=== PATIENT | female | born 1945 | race Caucasian/White ===

== ENCOUNTER 2024-04-26 22:10 | Inpatient (IN) | payer MEDICARE, OTHER ==
[~2024-04-26] VITALS: Ht 149.9 cm; Wt 60.1 kg
[~2024-04-26 22:10] MED LIST: ACET-929; BIOT10004 PO; CARV6.2517; CHOL20007 OR; CYAN25005 PO; DIPH25CA66 PO; FLUT250M9; LEVO75TA6; NAPR220C PO; POLYSOL2 EACHEYE; PROBTAB12 OR; ROSU10TA16 PO; SITA100T7
[2024-04-26 22:42] LABS: Basophils # (auto) 0 10 ^3/uL (0-0.2); Basophils % (auto) 0.8 % (0.0-2.0); Eosinophils # (auto) 0.1 10 ^3/uL (0-0.8); Eosinophils % (auto) 2.2 % (0.0-7.0); Hematocrit 38.7 % (36.0-46.0); Hemoglobin 13.3 g/dL (12.2-16.2); Lymphocytes # (auto) 2.5 10 ^3/uL (0.4-5.4); Lymphocytes % (auto) 40.7 % (10.0-50.0); Mean Corpuscular Hemoglobin 30.4 pg (28.0-32.0); Mean Corpuscular Hgb Conc. 34.3 g/dL (32.0-36.0); Mean Corpuscular Volume 88.7 fL (80.0-100.0); Monocytes # (auto) 0.6 10 ^3/uL (0-1.3); Monocytes % (auto) 9.7 % (0.0-12.0); Neutrophils # (auto) 2.8 10 ^3/uL (1.6-8.6); Neutrophils % (auto) 46.6 % (37.0-80.0); Nucleated Red Blood Cells % 0.1 %; Platelet Count (auto) 188 10^3/uL (140-450); Red Blood Cells 4.37 10^6/uL (4.0-5.20); Red Cell Distribution Width 13.4 % (11.8-14.3); White Blood Cell 6.1 10^3/uL (4.4-10.8)
[2024-04-26 23:01] LABS: Alanine Aminotransferase 21 U/L (7-40); Albumin 4.2 g/dL (3.2-4.8); Alkaline Phosphatase 83 U/L (46-116); Anion Gap 9 (5-15); Aspartate Aminotransferase 14 U/L (13-40); BUN/Creatinine Ratio 12.1 (10.0-20.0); Bilirubin, Total 0.5 mg/dL (0.2-1.0); Blood Urea Nitrogen 12 mg/dL (9-23); Calcium 9.7 mg/dL (8.7-10.4); Carbon Dioxide 25 mmol/L (20-31); Chloride 105 mmol/L (98-107); Glucose 111 mg/dL (74-106); Potassium 3.8 mmol/L (3.5-5.1); Sodium 139 mmol/L (136-145); Total Protein 6.5 g/dL (5.7-8.2)
[2024-04-27] MEDS: MORPHINE SULFATE 4 MG/ML SYR/VIAL IM ONE (02:06)
[2024-04-27] MEDS: cefTRIAXone 1GM/50ML D5W 50 ML IV ONE (04:34)
[2024-04-27] MEDS ORDERED: NITROGLYCERIN 0.4 MG SL TAB SL PRN (05:45)
[2024-04-27 07:38] VITALS: PULSE 85; RESP 16; O2SAT 97
[2024-04-27 08:18] VITALS: BP 130/72; PULSE 79; RESP 16; TEMP 98.5; O2SAT 94
[2024-04-27 08:47] LABS: INR 1.03 (0.9-1.15); Prothrombin Time 10.9 sec (9.3-11.8)
[2024-04-27 09:46] VITALS: O2SAT 96
[2024-04-27 10:17] LABS: Chloride 105 mmol/L (98-107); Sodium 141 mmol/L (136-145)
[2024-04-27 10:18] LABS: Anion Gap 9 (5-15); Calcium 10.1 mg/dL (8.7-10.4); Carbon Dioxide 27 mmol/L (20-31)
[2024-04-27 10:20] LABS: Basophils # (auto) 0 10 ^3/uL (0-0.2); Basophils % (auto) 0.6 % (0.0-2.0); Eosinophils # (auto) 0.2 10 ^3/uL (0-0.8); Eosinophils % (auto) 2.7 % (0.0-7.0); Hematocrit 42.6 % (36.0-46.0); Hemoglobin 14.5 g/dL (12.2-16.2); Lymphocytes # (auto) 2.8 10 ^3/uL (0.4-5.4); Lymphocytes % (auto) 42.6 % (10.0-50.0); Mean Corpuscular Hemoglobin 30.4 pg (28.0-32.0); Mean Corpuscular Hgb Conc. 34.1 g/dL (32.0-36.0); Mean Corpuscular Volume 89.3 fL (80.0-100.0); Monocytes # (auto) 0.6 10 ^3/uL (0-1.3); Monocytes % (auto) 9.1 % (0.0-12.0); Neutrophils # (auto) 2.9 10 ^3/uL (1.6-8.6); Nucleated Red Blood Cells % 0.2 %; Platelet Count (auto) 203 10^3/uL (140-450); Red Blood Cells 4.77 10^6/uL (4.0-5.20); Red Cell Distribution Width 13.4 % (11.8-14.3); White Blood Cell 6.5 10^3/uL (4.4-10.8)
[2024-04-27 10:23] LABS: Blood Urea Nitrogen 12 mg/dL (9-23); Glucose 104 mg/dL (74-106)
[2024-04-27 10:25] LABS: Creatine Kinase IFCC 57 U/L (34-145)
[2024-04-27] MEDS: MORPHINE SULFATE INJ 2 MG/ml SYRG IV PRN (11:55)
[2024-04-27] MEDS ORDERED: MEROPENEM 2GM/ 250ML 250 ML IV SCH ×2 (14:00)
[2024-04-27 15:34] LABS: Urine Bacteria None Seen /hpf (None Seen)
[2024-04-27 16:09] LABS: Urine Blood Negative /uL (Negative); Urine Clarity Turbid (Clear); Urine Color Light-Yellow (Yellow); Urine Mucus FEW (None Seen); Urine Protein, UAD Negative (Negative); Urine Specific Gravity 1.016 (1.001-1.035); Urine Urobilinogen Normal (Negative); Urine WBC 143 /hpf (0 - 5)
[2024-04-27 16:26] LABS: Amphetamine Screen, Urine Neg (NEGATIVE); Barbiturate Scree,Urine Neg (NEGATIVE); Benzodiazephine Screen, Urine Neg (NEGATIVE); Cannabinoid Screen, Urine Neg (NEGATIVE); Cocaine Screen, Urine Neg (NEGATIVE); Opiate Scree,Urine Pos (NEGATIVE); Phencyclidine Screen, Urine Neg (NEGATIVE)
[2024-04-27 19:00] VITALS: BP 147/72; PULSE 86; RESP 17; TEMP 97.9; O2SAT 95; O2SAT 98
[2024-04-27 19:15] VITALS: O2SAT 94
[2024-04-27 20:00] VITALS: BP 147/72; PULSE 86; PULSE 90; RESP 17; TEMP 97.9; O2SAT 95
[2024-04-27] MEDS ORDERED: LISI2.5T47 PO (22:57)
[2024-04-27] MEDS ORDERED: ATOR20TA50 PO (22:57)
[2024-04-27] MEDS ORDERED: [UNRECOGNIZED DRUG - CODE] NAS (22:57)
[2024-04-27] MEDS ORDERED: MET25T PO (22:57)
[2024-04-27] MEDS ORDERED: DULA0.5I SC (22:57)
[2024-04-27] MEDS: ATORVASTATIN 20 MG TAB PO SCH (23:03)
[2024-04-28] VITALS (9 sets, daily range): BP systolic 122–144; BP diastolic 49–74; PULSE 71–93; RESP 17–20; TEMP 97.9–99.1; O2SAT 93–96
[2024-04-28 06:37] LABS: Basophils # (auto) 0 10 ^3/uL (0-0.2); Basophils % (auto) 0.8 % (0.0-2.0); Eosinophils # (auto) 0.2 10 ^3/uL (0-0.8); Eosinophils % (auto) 3.8 % (0.0-7.0); Hematocrit 40.5 % (36.0-46.0); Hemoglobin 13.8 g/dL (12.2-16.2); Lymphocytes # (auto) 1.7 10 ^3/uL (0.4-5.4); Lymphocytes % (auto) 30.9 % (10.0-50.0); Mean Corpuscular Hemoglobin 30.3 pg (28.0-32.0); Mean Corpuscular Hgb Conc. 34.1 g/dL (32.0-36.0); Mean Corpuscular Volume 88.8 fL (80.0-100.0); Monocytes # (auto) 0.6 10 ^3/uL (0-1.3); Monocytes % (auto) 10.2 % (0.0-12.0); Neutrophils % (auto) 54.3 % (37.0-80.0); Nucleated Red Blood Cells % 0.2 %; Platelet Count (auto) 185 10^3/uL (140-450); Red Blood Cells 4.56 10^6/uL (4.0-5.20); Red Cell Distribution Width 13.3 % (11.8-14.3); White Blood Cell 5.5 10^3/uL (4.4-10.8)
[2024-04-28 06:51] LABS: Anion Gap 8 (5-15); Carbon Dioxide 26 mmol/L (20-31); Chloride 106 mmol/L (98-107); Potassium 3.7 mmol/L (3.5-5.1); Sodium 140 mmol/L (136-145)
[2024-04-28 06:52] LABS: Calcium 9.6 mg/dL (8.7-10.4)
[2024-04-28 06:57] LABS: BUN/Creatinine Ratio 11.5 (10.0-20.0); Blood Urea Nitrogen 10 mg/dL (9-23); Glucose 106 mg/dL (74-106)
[2024-04-28] MEDS ORDERED: IBUPROFEN 400 MG TAB PO PRN (07:15)
[2024-04-28] MEDS ORDERED: PANTOPRAZOLE 40 MG/10 ML VIAL INJ IV ONE (09:30)
[2024-04-28] MEDS: cefTRIAXone 1GM/50ML D5W 50 ML IV SCH (10:10)
[2024-04-28] MEDS: PANTOPRAZOLE 40 MG/10 ML VIAL INJ IV SCH (10:10)
[2024-04-28] MEDS: METOPROLOL TARTRATE 25 MG TAB PO SCH (10:11)
[2024-04-28] MEDS ORDERED: LEVOTHYROXINE SODIUM 25 MCG TAB PO ONE (11:45)
[2024-04-28] MEDS ORDERED: INSU1INJ19 SC (11:50)
[2024-04-28] MEDS: TAMSULOSIN HYDROCHLORIDE 0.4 MG CAP PO SCH (18:00)
[2024-04-28] MEDS: ALBUTEROL SULF 2.5 MG/0.5ML(0.5%) NEB SOLN NEB PRN (19:44)
[2024-04-28] MEDS ORDERED: CARVEDILOL 3.125 MG TAB PO SCH (22:00)
[2024-04-29] VITALS (14 sets, daily range): BP systolic 103–129; BP diastolic 51–66; PULSE 70–96; RESP 12–18; TEMP 97.6–98.6; O2SAT 91–100
[2024-04-29] MEDS: LEVOTHYROXINE SODIUM 25 MCG TAB PO SCH (06:48)
[2024-04-29 07:04] LABS: Chloride 105 mmol/L (98-107); Potassium 3.5 mmol/L (3.5-5.1); Sodium 140 mmol/L (136-145)
[2024-04-29 07:06] LABS: Calcium 9.6 mg/dL (8.7-10.4)
[2024-04-29 07:11] LABS: Blood Urea Nitrogen 10 mg/dL (9-23); Glucose 166 mg/dL (74-106)
[2024-04-29 07:41] LABS: Basophils # (auto) 0 10 ^3/uL (0-0.2); Basophils % (auto) 0.5 % (0.0-2.0); Eosinophils # (auto) 0.2 10 ^3/uL (0-0.8); Eosinophils % (auto) 3.4 % (0.0-7.0); Hemoglobin 13.1 g/dL (12.2-16.2); Lymphocytes # (auto) 1.4 10 ^3/uL (0.4-5.4); Lymphocytes % (auto) 23.3 % (10.0-50.0); Mean Corpuscular Hemoglobin 31.1 pg (28.0-32.0); Mean Corpuscular Hgb Conc. 35.6 g/dL (32.0-36.0); Mean Corpuscular Volume 87.6 fL (80.0-100.0); Monocytes # (auto) 0.6 10 ^3/uL (0-1.3); Monocytes % (auto) 9.5 % (0.0-12.0); Neutrophils # (auto) 3.7 10 ^3/uL (1.6-8.6); Neutrophils % (auto) 63.3 % (37.0-80.0); Nucleated Red Blood Cells % 0.2 %; Platelet Count (auto) 175 10^3/uL (140-450); Red Blood Cells 4.22 10^6/uL (4.0-5.20); Red Cell Distribution Width 13.2 % (11.8-14.3); White Blood Cell 5.9 10^3/uL (4.4-10.8)
[2024-04-29 08:44] LABS: Anion Gap 8 (5-15); Carbon Dioxide 27 mmol/L (20-31)
[2024-04-29] MEDS: MORPHINE SULFATE INJ 2 MG/ml SYRG IV PRN (09:03)
[2024-04-29] MEDS ORDERED: ONDANSETRON HCL 4 MG/2 ML VIAL IV PRN (09:15)
[2024-04-29] MEDS: ONDANSETRON HCL 4 MG/2 ML VIAL IV ONE (09:53)
[2024-04-29] MEDS: ASPirin 81 mg TAB PO ONE (10:15)
[2024-04-29 10:25] LABS: LDL Cholesterol 63 mg/dL (< 100); Triglycerides 142 mg/dL (< 150)
[2024-04-29 10:27] LABS: Cholesterol 133 mg/dL (< 200); HDL Cholesterol 45 mg/dL (40-59)
[2024-04-29 12:24] LABS: INR 1.07 (0.9-1.15); Partial Thromboplastin Time 23.9 SEC (24.5-34.5); Prothrombin Time 11.3 sec (9.3-11.8)
[2024-04-29] MEDS: HEPARIN SODIUM (PORCINE) 5000 UNITS/ML 1ML VIAL IV ONE (13:58)
[2024-04-29] MEDS: HEPARIN DRIP/D5W 100UNITS/ML 250 ML IV SCH (14:02)
[2024-04-29] MEDS: VERAPAMIL 2.5MG/ML INJ 2ML VIAL IV ONE (15:41)
[2024-04-29] MEDS: ANGIOMAX 250 MG VIAL IV ONE (15:41)
[2024-04-29] MEDS: fentaNYL CITRATE 100 MCG/2 ML VL ONE (15:41)
[2024-04-29] MEDS: MIDAZOLAM HCL 2MG/2ML 2ml VIAL (1mg/ml) ONE (15:42)
[2024-04-29] MEDS: SODIUM CHL 0.9% 0 ML ONE (15:42)
[2024-04-29] MEDS: LIDOCAINE 2%HCL (LOCAL ANESTH.) INJ 20ML MDV ONE (15:42)
[2024-04-29] MEDS: POTASSIUM CHLORIDE 40 MEQ, LIDOCAINE 1% (LOCAL ANESTH.) 4 ML in SODIUM CHL 0.9% 250 ML IV ONE (16:47)
[2024-04-29] MEDS: ACETAMINOPHEN 500 MG TAB PO PRN (16:50)
[2024-04-29 20:40] LABS: INR 1.07 (0.9-1.15); Partial Thromboplastin Time 26.8 SEC (24.5-34.5); Prothrombin Time 11.3 sec (9.3-11.8)
[2024-04-29] MEDS: SACUBITRIL-VALSARTAN 24mg/26mg TAB PO SCH (21:39)
[2024-04-29] MEDS: ATORVASTATIN 20 MG TAB PO SCH (21:39)
[2024-04-29] MEDS: CARVEDILOL 3.125 MG TAB PO SCH (21:40)
[2024-04-30] VITALS (12 sets, daily range): BP systolic 99–118; BP diastolic 50–60; PULSE 62–82; RESP 16–18; TEMP 97.6–98.7; O2SAT 93–100
[2024-04-30 07:22] LABS: Chloride 108 mmol/L (98-107); Potassium 4.1 mmol/L (3.5-5.1); Sodium 142 mmol/L (136-145)
[2024-04-30 07:23] LABS: Anion Gap 7 (5-15); Calcium 9.3 mg/dL (8.7-10.4); Carbon Dioxide 27 mmol/L (20-31)
[2024-04-30 07:28] LABS: BUN/Creatinine Ratio 11.2 (10.0-20.0); Blood Urea Nitrogen 10 mg/dL (9-23); Glucose 143 mg/dL (74-106)
[2024-04-30] MEDS: ASPirin 81 mg TAB PO SCH (09:16)
[2024-04-30] MEDS ORDERED: SPIRONOLACTONE 25 MG TAB PO SCH (10:00)
[2024-04-30] MEDS: EMPAGLIFLOZIN 10 MG TAB PO SCH (10:00)
[2024-04-30] MEDS: FUROSEMIDE 20 MG TAB PO SCH (10:00)
[2024-04-30] MEDS: ALBUTEROL SULF 2.5 MG/0.5ML(0.5%) NEB SOLN NEB ONE (15:25)
[2024-04-30] MEDS: IPRATROPIUM BROM 0.5 MG/2.5ML INH SOL NEB ONE (15:25)
[2024-04-30] MEDS ORDERED: CIPR500T4 PO (16:42)
[2024-04-30] MEDS ORDERED: TAMS0.4C39 PO (16:43)
== END 2024-04-30 18:40 | disposition home or self-care (01) | DRG 206 ==
LOC: ER 22:10 → TELE-WESTW 04-27 05:48 → TELE 04-27 05:48 → ER 04-27 05:48 → TELE-WESTW 04-27 18:43 → WEST WING 04-29 03:57 → TELE-WESTW 04-29 14:43
PROVIDERS: ADMIT Internal Medicine; ATTEND Internal Medicine
PROC: 4A023N7 Measurement of Cardiac Sampling and Pressure, Left Heart, Percutaneous Approach (ICD-10-PCS; principal; 2024-04-29)
PROC: B215YZZ Fluoroscopy of Left Heart using Other Contrast (ICD-10-PCS; 2024-04-29)
PROC: 4A033BC Measurement of Arterial Pressure, Coronary, Percutaneous Approach (ICD-10-PCS; 2024-04-29)
DX: M94.0 Chondrocostal junction syndrome [Tietze] (principal); I69.354 Hemiplegia and hemiparesis following cerebral infarction affecting left non-dominant side; N39.0 Urinary tract infection, site not specified; I25.110 Atherosclerotic heart disease of native coronary artery with unstable angina pectoris; I42.8 Other cardiomyopathies; N20.0 Calculus of kidney; K21.9 Gastro-esophageal reflux disease without esophagitis; J45.909 Unspecified asthma, uncomplicated; E03.9 Hypothyroidism, unspecified; E11.9 Type 2 diabetes mellitus without complications; R31.0 Gross hematuria; I72.2 Aneurysm of renal artery; K57.10 Diverticulosis of small intestine without perforation or abscess without bleeding; I11.0 Hypertensive heart disease with heart failure; I50.9 Heart failure, unspecified; I44.7 Left bundle-branch block, unspecified; E78.5 Hyperlipidemia, unspecified; I44.0 Atrioventricular block, first degree; Z90.710 Acquired absence of both cervix and uterus; Z82.49 Family history of ischemic heart disease and other diseases of the circulatory system; Z79.4 Long term (current) use of insulin; Z79.02 Long term (current) use of antithrombotics/antiplatelets
CPT/HCPCS: 36415; 76775; 80048; 80053; 80061; 80307; 80320; 81001; 82306; 82550; 82607; 83036; 83735; 83880; 84443; 84484; 85025; 85610; 85730; 87086; 93005; 93306; 93458; 93571; 94640; 96365; 96372; 99152; G0378; J2003; J2250; J2405; J2470